=== PATIENT | male | born 1945 | race Caucasian/White ===

== ENCOUNTER 2017-06-27 19:08 | Emergency (ER) | payer OTHER ==
[~2017-06-27] VITALS: Ht 180.3 cm; Wt 119.2 kg
[~2017-06-27 19:08] MED LIST: ALLOPURINOL300 MG PO; ASPIRIN E.C.81 M1 PO; CIPRO500 MG PO; COLCRYS0.6 MG PO; FLOMAX0.4 MG PO; Garlic PO; KLONOPIN1 MG PO; LIBRAX, CLI1 CAPSULE PO; METFORMIN HCL500 MG PO; METOPROLOL ER PO; NORVASC10 MG PO; OMEGA 3-6-9 11200 MG PO; OXAYDO5 MG PO; PANTOPRAZOLE SO40 MG PO; PERSANTINE75 MG PO; RANITIDINE HCL300 MG PO; Reglan PO; TOPROL XL100 MG PO; Tenex PO; ZESTRIL,PRINIVI40 MG PO; ZOCOR40 MG PO
[2017-06-27 20:20] LABS: BASOPHIL (%) 0.4 % (0-1); EOSINOPHIL (%) 0 % (0-5); HEMATOCRIT 43.5 % (38.0-50.0); HEMOGLOBIN 14.7 G/DL (12.5-16.6); IMMATURE GRANULOCYTE (%) 0.5 % (0.0-0.7); LYMPHOCYTE (%) 19.3 % (15-42); LYMPHOCYTE COUNT 2.1 K/uL (1.0-2.8); MCH 29.4 PG (29.0-34.0); MCHC 33.8 G/DL (30.0-36.0); MONOCYTE (%) 5.7 % (3-12); MONOCYTE COUNT 0.6 K/uL (0-0.8); NEUTROPHIL (%) 74.1 % (45-76); NEUTROPHIL COUNT 8.2 K/uL (1.8-6.4); PLATELET COUNT 206 K/uL (156-360); RBC DIS.WIDTH-CV 12.8 % (11.8-14.6); RBC DIS.WIDTH-SD 40.5 % (39-53); WHITE BLOOD COUNT 11.1 K/uL (4.1-10.2)
[2017-06-27 20:32] LABS: ALBUMIN 4.1 g/dL (3.2-4.8); CHLORIDE 108 mEq/L (99-109); POTASSIUM 3.9 mEq/L (3.7-5.4); SODIUM 141 mEq/L (136-147)
[2017-06-27 20:34] LABS: GLUCOSE 139 mg/dL (70-99)
[2017-06-27 20:36] LABS: TOTAL BILIRUBIN 0.4 mg/dL (0.0-1.0)
[2017-06-27 20:38] LABS: ALKALINE PHOSPHATASE 71 IU/L (3-129); CREATININE 1.4 mg/dL (0.6-1.3); GFR ESTIMATE (CALCULATED) 53 mL/min/ (58.99-99999)
[2017-06-27 20:39] LABS: UREA NITROGEN (BUN) 28 mg/dL (9-23)
[2017-06-27 20:40] LABS: AST (GOT) 19 IU/L (2-34)
[2017-06-27 20:41] LABS: ALT (GPT) 20 IU/L (3-49)
[2017-06-27 20:53] LABS: APPEARANCE CLEAR ((CLEAR)); BILIRUBIN NEGATIVE; BLOOD NEGATIVE; COLOR STRAW ((YELLOW)); GLUCOSE (STRIP) 50; KETONES NEGATIVE; LEUKOCYTES NEGATIVE; NITRITE NEGATIVE; PROTEIN (STRIP) NEGATIVE; SPECIFIC GRAVITY 1.013 (1.000-1.030); UCUL ADDED? NO; UROBILINOGEN 0.2 MG/DL (0.2-1.0)
[2017-06-28] MEDS ORDERED: NORCO 5/3251 TABLET PO (00:58)
[2017-06-28 01:12] VITALS: BP 150/75
== END 2017-06-28 01:21 | disposition home or self-care (01) ==
LOC: EME 19:08
PROVIDERS: Emergency Medicine
DX: N43.3 Hydrocele, unspecified (principal); I86.1 Scrotal varices; M25.551 Pain in right hip; E11.9 Type 2 diabetes mellitus without complications; E78.5 Hyperlipidemia, unspecified; I10 Essential (primary) hypertension; K21.9 Gastro-esophageal reflux disease without esophagitis; Z95.5 Presence of coronary angioplasty implant and graft; Z79.84 Long term (current) use of oral hypoglycemic drugs; Z79.82 Long term (current) use of aspirin; Z88.8 Allergy status to other drugs, medicaments and biological substances
CPT/HCPCS: 74177; 76870; 80053; 81003; 85025; 93971; 99281; 99285; J2270; J3010; J7040

== ENCOUNTER 2017-06-30 15:02 | Observation (INO) | payer OTHER ==
[~2017-06-30] VITALS: Ht 180.3 cm; Wt 115.4 kg
[~2017-06-30 15:02] MED LIST changes: +NORCO 5/3251 TABLET PO
[2017-06-30 19:37] LABS: HEMATOCRIT 45.9 % (38.0-50.0); HEMOGLOBIN 15.9 G/DL (12.5-16.6); MCH 29.8 PG (29.0-34.0); MCHC 34.6 G/DL (30.0-36.0); PLATELET COUNT 213 K/uL (156-360); RBC DIS.WIDTH-CV 12.2 % (11.8-14.6); RBC DIS.WIDTH-SD 38.5 % (39-53); RED BLOOD COUNT 5.34 M/uL (4.00-5.50); WHITE BLOOD COUNT 11.3 K/uL (4.1-10.2)
[2017-06-30 19:46] LABS: CHLORIDE 106 mEq/L (99-109); POTASSIUM 3.4 mEq/L (3.7-5.4); SODIUM 140 mEq/L (136-147)
[2017-06-30 19:48] LABS: TOTAL PROTEIN 6.7 g/dL (6.4-8.3)
[2017-06-30 19:51] LABS: ALKALINE PHOSPHATASE 70 IU/L (3-129)
[2017-06-30 19:52] LABS: CREATININE 1.3 mg/dL (0.6-1.3); GFR ESTIMATE (CALCULATED) 58 mL/min/ (58.99-99999)
[2017-06-30 19:53] LABS: AST (GOT) 22 IU/L (2-34); GLUCOSE 95 mg/dL (70-99); TOTAL BILIRUBIN 0.8 mg/dL (0.0-1.0); UREA NITROGEN (BUN) 35 mg/dL (9-23)
[2017-06-30 19:55] LABS: ALT (GPT) 25 IU/L (3-49)
[2017-06-30] MEDS ORDERED: LITE COAT ASPI325 M1 PO (20:22)
[2017-06-30] MEDS ORDERED: TENEX1 MG PO (20:22)
[2017-06-30] MEDS ORDERED: ROBAXIN500 MG PO (20:23)
[2017-06-30] MEDS ORDERED: ZANAFLEX2 MG PO (20:23)
[2017-06-30] MEDS ORDERED: FLOMAX0.4 MG PO (20:24)
[2017-06-30 21:55] LABS: URIC ACID 4.1 mg/dL (3.1-9.2)
[2017-06-30 22:22] VITALS: BP 181/80
[2017-07-01 06:19] LABS: HEMATOCRIT 46.9 % (38.0-50.0); MCH 29.1 PG (29.0-34.0); MCHC 34.1 G/DL (30.0-36.0); MCV 85.3 FL (86-99); PLATELET COUNT 231 K/uL (156-360); RBC DIS.WIDTH-CV 12.1 % (11.8-14.6); RBC DIS.WIDTH-SD 37.8 % (39-53); WHITE BLOOD COUNT 7.6 K/uL (4.1-10.2)
[2017-07-01 06:48] LABS: CHLORIDE 103 MEQ/L (99-109); CREATININE 1.3 MG/DL (0.6-1.3); GFR ESTIMATE (CALCULATED) 58 mL/min/ (58.99-99999); SODIUM 139 MEQ/L (136-147); UREA NITROGEN (BUN) 35 mg/dL (9-23)
[2017-07-01 06:49] LABS: GLUCOSE 177 mg/dL (70-99); POTASSIUM 4.3 MEQ/L (3.7-5.4)
[2017-07-01 07:16] VITALS: BP 189/86
[2017-07-01 07:23] LABS: APPEARANCE CLEAR ((CLEAR)); BILIRUBIN NEGATIVE; BLOOD NEGATIVE; COLOR YELLOW ((YELLOW)); GLUCOSE (STRIP) 150; KETONES 5; LEUKOCYTES NEGATIVE; NITRITE NEGATIVE; PROTEIN (STRIP) NEGATIVE; SPECIFIC GRAVITY 1.019 (1.000-1.030); UCUL ADDED? NO; UROBILINOGEN 0.2 MG/DL (0.2-1.0)
[2017-07-01 12:31] VITALS: BP 134/74
[2017-07-01 16:03] VITALS: BP 147/68
[2017-07-01 19:45] VITALS: BP 153/77
[2017-07-02 00:09] VITALS: BP 118/58
[2017-07-02 05:44] VITALS: BP 137/78
[2017-07-02 07:12] VITALS: BP 138/68
[2017-07-02 10:54] VITALS: BP 120/68
[2017-07-02] MEDS ORDERED: GABAPENTIN100 MG PO (12:42)
[2017-07-02] MEDS ORDERED: OXYCODONE-APAP1 EACH PO (12:42)
[2017-07-02] MEDS ORDERED: APRESOLINE25 MG PO (12:42)
[2017-07-02] MEDS ORDERED: PREDNISONE10 MG PO (12:42)
== END 2017-07-02 13:52 | disposition home or self-care (01) ==
LOC: EME 15:02 → EDOF 21:05 → 5WEST 21:05 → EDOF 21:05 → ENRESERV 21:09 → 5WEST 22:17
PROVIDERS: Emergency Medicine; Hospitalist; Physician Assistant
DX: R10.31 Right lower quadrant pain (principal); M70.61 Trochanteric bursitis, right hip; M16.11 Unilateral primary osteoarthritis, right hip; R21 Rash and other nonspecific skin eruption; I10 Essential (primary) hypertension; I25.10 Atherosclerotic heart disease of native coronary artery without angina pectoris; Z95.5 Presence of coronary angioplasty implant and graft; E78.5 Hyperlipidemia, unspecified; E11.9 Type 2 diabetes mellitus without complications; M10.9 Gout, unspecified; N40.0 Benign prostatic hyperplasia without lower urinary tract symptoms; Z86.73 Personal history of transient ischemic attack (TIA), and cerebral infarction without residual deficits; R26.89 Other abnormalities of gait and mobility; Z91.81 History of falling; Z79.82 Long term (current) use of aspirin; Z87.891 Personal history of nicotine dependence
CPT/HCPCS: 72131; 72192; 74150; 76870; 80048; 80053; 81003; 82948; 84550; 85027; 99281; 99285; G0378; G8978 GP CM; G8979 GP CK; G8987 GO CL; G8988 GO CK; J1170; J1644; J1815; J1885; J2270; J2405; J2920; J3010

== ENCOUNTER 2017-08-10 16:19 | Emergency (ER) | payer OTHER ==
[~2017-08-10] VITALS: Ht 167.6 cm; Wt 114.2 kg
[~2017-08-10 16:19] MED LIST changes: +APRESOLINE25 MG PO; +GABAPENTIN100 MG PO; +LITE COAT ASPI325 M1 PO; +OXYCODONE-APAP1 EACH PO; +PREDNISONE10 MG PO; +ROBAXIN500 MG PO; +TENEX1 MG PO; +ZANAFLEX2 MG PO
[2017-08-10 17:23] LABS: BASOPHIL (%) 0.5 % (0-1); BASOPHIL COUNT 0.1 K/uL (0-0.1); EOSINOPHIL (%) 1.3 % (0-5); EOSINOPHIL COUNT 0.1 K/uL (0-0.3); HEMATOCRIT 41.3 % (38.0-50.0); HEMOGLOBIN 14.2 G/DL (12.5-16.6); IMMATURE GRANULOCYTE (%) 0.3 % (0.0-0.7); LYMPHOCYTE (%) 21.9 % (15-42); LYMPHOCYTE COUNT 2.1 K/uL (1.0-2.8); MCHC 34.4 G/DL (30.0-36.0); MCV 87.3 FL (86-99); MONOCYTE (%) 6.6 % (3-12); MONOCYTE COUNT 0.6 K/uL (0-0.8); NEUTROPHIL (%) 69.4 % (45-76); NEUTROPHIL COUNT 6.5 K/uL (1.8-6.4); PLATELET COUNT 189 K/uL (156-360); RBC DIS.WIDTH-SD 41.4 % (39-53); RED BLOOD COUNT 4.73 M/uL (4.00-5.50); WHITE BLOOD COUNT 9.4 K/uL (4.1-10.2)
[2017-08-10 17:32] LABS: CHLORIDE 107 mEq/L (99-109); POTASSIUM 3.9 mEq/L (3.7-5.4); SODIUM 142 mEq/L (136-147)
[2017-08-10 17:33] LABS: GLUCOSE 121 mg/dL (70-99)
[2017-08-10 17:37] LABS: CREATININE 1.5 mg/dL (0.6-1.3); GFR ESTIMATE (CALCULATED) 49 mL/min/ (58.99-99999)
[2017-08-10 17:38] LABS: UREA NITROGEN (BUN) 26 mg/dL (9-23)
[2017-08-10 17:44] LABS: TROP-I INTERPRETATION NEGATIVE; TROPONIN-I < 0.01 ng/mL (0.0-0.30)
[2017-08-10 20:49] VITALS: BP 122/58
== END 2017-08-10 20:49 | disposition home or self-care (01) ==
LOC: EME 16:19
PROVIDERS: Emergency Medicine
DX: R42 Dizziness and giddiness (principal); I95.1 Orthostatic hypotension; G89.29 Other chronic pain; M54.9 Dorsalgia, unspecified; K21.9 Gastro-esophageal reflux disease without esophagitis; E11.9 Type 2 diabetes mellitus without complications; E78.5 Hyperlipidemia, unspecified; I10 Essential (primary) hypertension; Z87.891 Personal history of nicotine dependence; Z87.442 Personal history of urinary calculi; Z86.73 Personal history of transient ischemic attack (TIA), and cerebral infarction without residual deficits; Z95.5 Presence of coronary angioplasty implant and graft; Z90.49 Acquired absence of other specified parts of digestive tract; Z88.8 Allergy status to other drugs, medicaments and biological substances
CPT/HCPCS: 80048; 81003; 84484; 85025; 93005; 99281; 99285; J7120

== ENCOUNTER 2017-11-11 18:09 | Observation (INO) | payer OTHER ==
[~2017-11-11] VITALS: Ht 180.3 cm; Wt 118.4 kg
[2017-11-11 20:11] LABS: BASOPHIL (%) 0.4 % (0-1); EOSINOPHIL (%) 3.5 % (0-5); EOSINOPHIL COUNT 0.3 K/uL (0-0.3); HEMATOCRIT 39.7 % (38.0-50.0); HEMOGLOBIN 13.5 G/DL (12.5-16.6); IMMATURE GRANULOCYTE (%) 0.4 % (0.0-0.7); LYMPHOCYTE (%) 35.1 % (15-42); LYMPHOCYTE COUNT 2.8 K/uL (1.0-2.8); MCH 31.3 PG (29.0-34.0); MCV 91.9 FL (86-99); MONOCYTE COUNT 0.6 K/uL (0-0.8); NEUTROPHIL (%) 53.6 % (45-76); NEUTROPHIL COUNT 4.4 K/uL (1.8-6.4); PLATELET COUNT 179 K/uL (156-360); RBC DIS.WIDTH-CV 12.9 % (11.8-14.6); RBC DIS.WIDTH-SD 42.9 % (39-53); RED BLOOD COUNT 4.32 M/uL (4.00-5.50); WHITE BLOOD COUNT 8.1 K/uL (4.1-10.2)
[2017-11-11 20:18] LABS: PTT 25.5 SEC (25-37)
[2017-11-11 20:23] LABS: CHLORIDE 108 mEq/L (99-109); POTASSIUM 3.8 mEq/L (3.7-5.4)
[2017-11-11 20:24] LABS: SODIUM 142 mEq/L (136-147)
[2017-11-11 20:25] LABS: GLUCOSE 128 mg/dL (70-99)
[2017-11-11 20:29] LABS: CREATININE 1.7 mg/dL (0.6-1.3); GFR ESTIMATE (CALCULATED) 42 mL/min/ (58.99-99999)
[2017-11-11 20:30] LABS: UREA NITROGEN (BUN) 26 mg/dL (9-23)
[2017-11-11 20:36] LABS: TROP-I INTERPRETATION NEGATIVE; TROPONIN-I 0.01 ng/mL (0.0-0.30)
[2017-11-11] MEDS ORDERED: GABAPENTIN100 MG PO (22:30)
[2017-11-11] MEDS ORDERED: ZANTAC150 MG PO (22:31)
[2017-11-12 01:01] VITALS: BP 183/93
[2017-11-12 02:09] LABS: HDL CHOLESTEROL 38 MG/DL (Desirable>=40); LDL CHOLESTEROL 35 mg/dL (Desirable<100); NON-HDL CHOLESTEROL 95 mg/dL (Desirable<160); TOTAL CHOLESTEROL 133 mg/dL (Desirable<200); TRIGLYCERIDES 300 MG/DL (Normal: <150)
[2017-11-12 02:18] VITALS: BP 153/74
[2017-11-12 04:30] VITALS: BP 142/72
[2017-11-12 05:28] LABS: HEMATOCRIT 38.6 % (38.0-50.0); HEMOGLOBIN 12.6 G/DL (12.5-16.6); MCHC 32.6 G/DL (30.0-36.0); MCV 91.9 FL (86-99); PLATELET COUNT 169 K/uL (156-360); RBC DIS.WIDTH-SD 43.1 % (39-53); WHITE BLOOD COUNT 7.8 K/uL (4.1-10.2)
[2017-11-12 06:14] LABS: CHLORIDE 108 MEQ/L (99-109); CREATININE 1.5 MG/DL (0.6-1.3); GFR ESTIMATE (CALCULATED) 49 mL/min/ (58.99-99999); GLUCOSE 123 mg/dL (70-99); POTASSIUM 3.8 MEQ/L (3.7-5.4); SODIUM 144 MEQ/L (136-147); UREA NITROGEN (BUN) 29 mg/dL (9-23)
[2017-11-12 07:39] VITALS: BP 167/77
[2017-11-12 10:32] LABS: HEMOGLOBIN A1c (GLYCOHEMOGLOB) 6.2 % (Below 5.7)
[2017-11-12 14:52] LABS: APPEARANCE CLEAR ((CLEAR)); BILIRUBIN NEGATIVE; BLOOD NEGATIVE; COLOR YELLOW ((YELLOW)); GLUCOSE (STRIP) NEGATIVE; KETONES NEGATIVE; LEUKOCYTES NEGATIVE; NITRITE NEGATIVE; PROTEIN (STRIP) NEGATIVE; SPECIFIC GRAVITY 1.016 (1.000-1.030); UCUL ADDED? NO; UROBILINOGEN 0.2 MG/DL (0.2-1.0)
[2017-11-12 17:09] VITALS: BP 149/72
== END 2017-11-12 17:30 | disposition home or self-care (01) ==
LOC: EME → EDBD 18:09 → EME 18:09 → EDOF 23:48 → 4SOUTH 23:48 → ENRESERV 23:49 → 4SOUTH 11-12 00:50
PROVIDERS: Emergency Medicine; Hospitalist; Physician Assistant
DX: I63.8 Other cerebral infarction (principal); N17.9 Acute kidney failure, unspecified; E11.22 Type 2 diabetes mellitus with diabetic chronic kidney disease; I12.9 Hypertensive chronic kidney disease with stage 1 through stage 4 chronic kidney disease, or unspecified chronic kidney disease; N18.3 Chronic kidney disease, stage 3 (moderate); M10.9 Gout, unspecified; N40.0 Benign prostatic hyperplasia without lower urinary tract symptoms; I25.10 Atherosclerotic heart disease of native coronary artery without angina pectoris; E78.5 Hyperlipidemia, unspecified; Z86.73 Personal history of transient ischemic attack (TIA), and cerebral infarction without residual deficits; Z95.5 Presence of coronary angioplasty implant and graft; F17.220 Nicotine dependence, chewing tobacco, uncomplicated; Z79.891 Long term (current) use of opiate analgesic; Z82.3 Family history of stroke; Z79.82 Long term (current) use of aspirin; E66.9 Obesity, unspecified; Z68.36 Body mass index [BMI] 36.0-36.9, adult; Z90.49 Acquired absence of other specified parts of digestive tract; Z87.891 Personal history of nicotine dependence; Z83.3 Family history of diabetes mellitus; Z80.52 Family history of malignant neoplasm of bladder; Z88.8 Allergy status to other drugs, medicaments and biological substances
CPT/HCPCS: 70450; 70551; 80048; 80061; 81003; 82948; 83036; 83880; 84484; 85025; 85027; 85610; 85730; 93005; 93306; 93880; 99281; 99285; G0378; J1644; J7030